=== PATIENT | female | born 1995 | race Caucasian/White ===

== ENCOUNTER 2018-08-12 15:42 | Emergency (ER) | payer OTHER ==
[~2018-08-12] VITALS: Ht 154.9 cm; Wt 81.2 kg
[2018-08-12 15:48] VITALS: Ht 154.9 cm; Wt 81.2 kg
[2018-08-12 17:11] VITALS: BP 148/76
== END 2018-08-12 17:11 | disposition home or self-care (01) ==
LOC: ED 15:42
DX: S05.02XA Injury of conjunctiva and corneal abrasion without foreign body, left eye, initial encounter (principal); X58.XXXA Exposure to other specified factors, initial encounter; Y93.G1 Activity, food preparation and clean up; Y92.89 Other specified places as the place of occurrence of the external cause; Y99.8 Other external cause status

== ENCOUNTER 2019-01-18 08:58 | Emergency (ER) | payer OTHER ==
[~2019-01-18] VITALS: Ht 154.9 cm; Wt 85.3 kg
[2019-01-18 09:13] VITALS: BP 143/77; Ht 154.9 cm; Wt 85.3 kg
== END 2019-01-18 11:06 | disposition home or self-care (01) ==
LOC: ED 08:58
DX: J06.9 Acute upper respiratory infection, unspecified (principal); M79.10 Myalgia, unspecified site

== ENCOUNTER 2019-07-31 12:42 | Emergency (ER) | payer OTHER ==
[~2019-07-31] VITALS: Ht 154.9 cm; Wt 95.3 kg
[2019-07-31 12:52] VITALS: Ht 154.9 cm; Wt 95.3 kg
[2019-07-31 15:15] VITALS: BP 118/65
== END 2019-07-31 15:15 | disposition short-term general hospital (02) ==
LOC: ED 12:42
DX: O60.14X0 Preterm labor third trimester with preterm delivery third trimester, not applicable or unspecified (principal); Z3A.34 34 weeks gestation of pregnancy

== ENCOUNTER 2019-10-09 14:42 | Emergency (ER) | payer OTHER ==
[~2019-10-09] VITALS: Ht 154.9 cm; Wt 95.3 kg
[2019-10-09 15:14] VITALS: Ht 154.9 cm; Wt 95.3 kg
[2019-10-09 16:07] VITALS: BP 131/69
== END 2019-10-09 16:07 | disposition home or self-care (01) ==
LOC: ED 14:42
DX: H66.92 Otitis media, unspecified, left ear (principal)
CPT/HCPCS: J1885

== ENCOUNTER 2020-08-23 09:32 | Emergency (ER) | payer OTHER ==
[~2020-08-23] VITALS: Ht 154.9 cm; Wt 85.7 kg
[2020-08-23 09:50] VITALS: Ht 154.9 cm; Wt 85.7 kg
[2020-08-23 11:04] VITALS: BP 119/64
== END 2020-08-23 11:04 | disposition home or self-care (01) ==
LOC: ED 09:32
DX: H60.503 Unspecified acute noninfective otitis externa, bilateral (principal)